=== PATIENT | female | born 1955 | race Native Hawaiian/Other Pacific Islander ===

== ENCOUNTER 2016-12-13 13:18 | Emergency (ER) | payer BC ==
[~2016-12-13] VITALS: Ht 167.6 cm; Wt 68.0 kg
== END 2016-12-13 15:45 | disposition home or self-care (01) ==
LOC: ED 13:18
DX: M84.374A Stress fracture, right foot, initial encounter for fracture (principal); S70.02XA Contusion of left hip, initial encounter; M54.32 Sciatica, left side; W18.09XA Striking against other object with subsequent fall, initial encounter; Y92.098 Other place in other non-institutional residence as the place of occurrence of the external cause
CPT/HCPCS: 99283

== ENCOUNTER 2023-01-13 15:14 | Outpatient (CLI) | payer OTHER | END 2023-01-13 19:40 | disposition home or self-care (01) | LOC: CT 15:14 | PROVIDERS: ATTEND Physician Assistant Medical | DX: E78.49 Other hyperlipidemia (principal); Z13.6 Encounter for screening for cardiovascular disorders ==